=== PATIENT | male | born 1970 | race Caucasian/White ===

== ENCOUNTER 2018-08-16 10:04 | Emergency (ER) | payer OTHER ==
[~2018-08-16] VITALS: Ht 177.8 cm; Wt 73.0 kg
[2018-08-16 10:12] VITALS: BP 117/67
[2018-08-16 11:38] VITALS: BP 126/80
== END 2018-08-16 11:38 | disposition home or self-care (01) ==
LOC: MED 10:04
DX: S93.402A Sprain of unspecified ligament of left ankle, initial encounter (principal); F17.210 Nicotine dependence, cigarettes, uncomplicated; Z71.6 Tobacco abuse counseling; Z88.0 Allergy status to penicillin; X58.XXXA Exposure to other specified factors, initial encounter; Y93.89 Activity, other specified; Y92.89 Other specified places as the place of occurrence of the external cause; Y99.8 Other external cause status
CPT/HCPCS: 29515; 73610; 99283; Q0092

== ENCOUNTER 2023-02-20 05:35 | Emergency (ER) | payer OTHER ==
[~2023-02-20] VITALS: Ht 177.8 cm; Wt 72.6 kg
[2023-02-20 05:46] VITALS: BP 111/76; PULSE 65; RESP 20; TEMP 98.2; O2SAT 98
--- NOTE | 2023-02-20 05:54 | NUR ---
PT. WALKED TO BED 08.
[2023-02-20] MEDS ORDERED: LIDOCAINE/EPI 2% 1:100000 20 ML VIAL INJ ONE (06:20)
--- NOTE | 2023-02-20 06:41 | NUR ---
EJ MENDES AT BEDSIDE
--- NOTE | 2023-02-20 06:47 | NUR ---
. AT BS PERFORMING A LAC REPAIR ON KELSEY BORDER ON L SIDE OF UPPER LIP. PT TOLERATING PROCEDURE WELL.
[2023-02-20] MEDS ORDERED: BACI-389 TP (06:55)
[2023-02-20 07:02] VITALS: BP 121/78; PULSE 74; RESP 18; TEMP 97.9; O2SAT 98
--- NOTE | 2023-02-20 07:05 | NUR ---
Patient discharged with v/s stable. Written and verbal after care instructions given and explained. Patient alert, oriented and verbalized understanding of instructions. Ambulatory with steady gait. All questions addressed prior to discharge. ID band removed. Patient advised to follow up with PMD/ER for wound check in 2 days or to return to the ER if s/s of infection are noted. Rx of polysporin ointment given. Patient educated on indication of medication including possible reaction and side effects. Opportunity to ask questions provided and answered.
== END 2023-02-20 07:05 | disposition home or self-care (01) ==
LOC: MED 05:35
DX: S01.511A Laceration without foreign body of lip, initial encounter (principal); Z88.0 Allergy status to penicillin; Z79.899 Other long term (current) drug therapy; X58.XXXA Exposure to other specified factors, initial encounter; Y93.89 Activity, other specified; Y92.89 Other specified places as the place of occurrence of the external cause; Y99.8 Other external cause status
CPT/HCPCS: 12011; 99282; J2001